=== PATIENT | male | born 1970 | race African-American/Black ===

== ENCOUNTER 2017-02-11 12:17 | Observation (INO) ==
[2017-02-11] MEDS: SODIUM CHLORIDE 0.9% 1,000 ML IV SCH ×2 (12:15→22:07)
[~2017-02-11 12:17] MED LIST: LIDOCAINE 1% 20 ML VIAL ONE; MIDAZOLAM 2 MG/2 ML VIAL ONE; ONDANSETRON 4 MG/2 ML VIAL ONE; fentaNYL 100 MCG/2 ML VIAL ONE
[2017-02-11] MEDS ORDERED: ONDANSETRON 4 MG/2 ML VIAL IV PRN (12:27)
[2017-02-11] MEDS ORDERED: ZALEPLON 5 MG CAPSULE PO PRN (12:27)
[2017-02-11] MEDS ORDERED: NITROGLYCERIN SL 0.4 MG TABLET SL PRN (12:27)
[2017-02-11] MEDS ORDERED: ACETAMINOPHEN 325 MG TABLET PO PRN (12:27)
--- NOTE | 2017-02-11 12:34 | Operative Note ---
Date of procedure: 02/11/17 Procedure Preformed: Left heart catheterization with LV gram. Surgeon / Physician: Sukhwinder Agudelo Propellant Charge Zone Assembler: Edel Maldonado Post-op diagnosis: same Findings: Patient with small vessel coronary artery disease. No obstructive disease to account for his symptoms or EKG findings. Specimens: none sent Estimated blood loss: minimal Condition: stable Anesthesia: local, conscious sedation Disposition: floor
--- NOTE | 2017-02-11 12:37 | Cardiology History & Physical ---
Assessment and Plan - Time spent with patient Time spent with patient: Greater than 30 minutes (1) Chest pain Status: Acute Assessment and plan: Patient had emergent cardiac catheterization without finding of occluded coronary disease or findings a could explain his findings on ECG. He did have some small vessels with disease. We will evaluate him from other causes of his chest pain especially with his nausea vomiting. This may indicate a GI source. Current Visit: Yes (2) Nausea and vomiting Status: Acute Assessment and plan: This is an acute onset and preceded he is chest pain by 30 minutes to an hour. This may be the source of his chest pain. He may have a GI issue more than so that a cardiac issue at this time. Current Visit: Yes (3) Coronary artery disease Status: Chronic Assessment and plan: He does have some small vessel coronary disease. He gives a history of having some coronary disease previously and cardiac evaluation. We will try to get those records. Current Visit: Yes (4) Hypertension Status: Chronic Assessment and plan: This is initially significantly elevated when he was picked up by EMS. Present is stable. Current Visit: Yes (5) Diabetes mellitus Status: Chronic Assessment and plan: The details of this is unknown at this time. We will have to investigate this further. Current Visit: Yes History of Present Illness Chief complaint: Chest pain nausea vomiting. History of present illness: Mr. Burt is a 46 year old male who is brought in by EMS with a diagnosis of STEMI. Patient was seen in the catheterization laboratory. Should be noted the patient's history is somewhat limited at this time secondary to his situation and post catheterization is somewhat sedate. [facility] and developed nausea vomiting about 30 minutes to an hour after which she developed chest pain. EMS was summoned. ECG was done with ECG changes diffusely. He has some ST elevation anteriorly with ST depression inferiorly. T-wave abnormalities were present. The patient was labeled a STEMI by EMS and brought directly to the cardiac catheterization laboratory. Patient states she has had prior heart disease and was told that he is vessels were too small for stents. 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 He gives a history of hypertension diabetes. He says she has not smoked in over a year. On his arrival to the catheterization auditory he was having nausea vomiting. He denied chest pain. Allergies Allergy/AdvReac Type Severity Reaction Status Date / Time No Known Allergies Allergy Unverified 02/11/17 12:26 ROS unobtainable: other Review of systems: Constitutional: Denies anorexia, chills, fatigue, fever, frequent falls, night sweats, weight gain, weight loss Eyes: Denies visual changes or loss of vision Ears: Denies decreased hearing, vertigo Nose, mouth and throat: Denies dysphagia, epistaxis, headaches, neck pain, tongue swelling, Neck: Denies thyromegaly or masses. No stiffness. Cardiovascular: as per HPI Respiratory: Denies cough, dyspnea, hemoptysis, dyspnea on exertion, wheezing, snoring Gastrointestinal: Complains of nausea vomiting acutely today. Denies constipation, dyspepsia, dysphagia, hematemesis, hematochezia, melena Genitourinary: Denies dysuria, hematuria, nocturia Musculoskeletal: Denies arthralgias, joint swelling, muscle weakness, myalgias Neurological: denies abnormal gait, abnormal speech, confusion, convulsions, frequent falls, headaches, memory loss, syncope Psychiatric: Denies anxiety, confusion, depression Endocrine: States she has diabetes mellitus. Hematologic/Lymphatic: Denies easy bleeding, easy bruising Dermatologic: Denies Rash Medical,Surgical,& Family Hx - Medical History Cardio: History of: CAD Psychological: No history of: Anxiety Disorders, Psychiatric/Substance Abuse Tx Neurology: No history of: Cerebral Hemorrhage, Cerebrovascular Accident, Seizures HEENT: No history of: Ear Problem, Eye Problem Endocrine: History of: Diabetes Mellitus (NIDDM) Rheumatology: No history of;: Rheumatological Problems Respiratory: No history of: Respiratory Problems Gastrointestinal: History of: GI Problems (Admitted with nausea vomiting.) No history of: Gastrointestinal Bleed, Hematochezia, Liver Problems Hematology: No history of: Anemia, Blood Disorders - Surgical History Additional Surgical History: Elbow surgery - Family History Family History: noncontributory - Social History Smoking Status: Former smoker Have you smoked in the last 12 months: No Cardiology Physical Exam - Constitutional Vitals: Intake and Output 02/10/17 02/11/17 02/11/17 23:59 07:59 15:59 Other: Weight 80.739 kg Patient Weight 02/11/17 23:59 Weight 80.739 kg Exam: General appearance: normal weight, nausea vomiting on admission. Head exam: normal inspection, atraumatic Eye exam: Pupils are equal and reactive. EOMI. There is no trauma. Ear exam: Anatomically normal. Normal auditory acuity to conversation. Oral exam: No significant oral lesions. Neck exam: normal inspection no JVD. No carotid bruit. Trachea is in midline. Respiratory exam: clear to auscultation bilaterally and anteriorly with good air movement. No rales, rhonchi or wheezes. Cardiovascular exam: regular rate and rhythm, no murmur or gallop or rub. No precordial lift. No bruits over the major arteries. Chest wall/torso: Anatomically normal. No tenderness, deformity Peripheral Pulses: 2+ throughout. GI/Abdominal exam: normal bowel sounds, soft and nontender, no abdominal bruits or pulsatile masses. Musculoskeletal/Extremities exam: normal inspection without edema or cyanosis. No deformities or trauma. Neurological exam: alert, oriented X3. There is no gross neurologic deficits. Psychiatric exam: normal affect, normal mood. Cognitive function is grossly intact. Skin exam: normal color, warm. No rashes or other skin lesions. Result/EKG - Impressions Impressions: ECG was sinus rhythm with ST-T abnormalities. There was some ST elevation anteriorly and depression inferiorly. With diffuse T-wave abnormalities. Quality Measures - VTE Contraindication to Pharmacological VTE Prophylaxis: High Risk of Bleeding
[2017-02-11] MEDS ORDERED: DEXTROSE 50% 25 GM/50 ML VIAL IV PRN (12:48)
[2017-02-11] MEDS ORDERED: GLUCAGON 1 MG VIAL IM PRN (12:48)
--- NOTE | 2017-02-11 13:03 | Cardiac Catheterization ---
Date of Procedure:: 02/11/17 Pre-op Diagnosis: Patient admitted directly to cardiac catheterization laboratory per STEMI diagnosis by EMS. ECG is abnormal. Post-op diagnosis: same Procedure: LEFT HEART CATHERIZATION History: 46-year-old man who is brought directly to cardiac catheterization laboratory per [place]. Patient gives a history of having coronary disease but apparently too small for stents. The patient had nausea and vomiting 30+ minutes prior to chest pain. [place] by EMS had EKG abnormalities which he did and was brought to the catheterization laboratory the diagnosis of STEMI. Pre-Op diagnosis: STEMI per EMS with abnormal ECG and history of coronary artery disease. Postoperative diagnosis: Patient with small vessel coronary disease but no disease to account for his ECG abnormalities. Procedures: 1. Left heart catheterization. 2. Left ventricular angiogram. 3. Selective left and right coronary angiograms. 4. Right common femoral artery angiogram with Angio-Seal hemostasis. Equipment: 6 Canadian arterial sheath, 6 Canadian diagnostic pigtail catheter, JL4 and JR4 diagnostic catheters. A 6 Canadian Angio-Seal hemostatic device. Medications: Preoperative Benadryl and Valium given by mouth. Lidocaine 1% local anesthesia 10 mls administered by myself. Intraprocedure patient received Versed 1 mgs IVP, fentanyl 50 mcg IVP, Zofran 4 mgs IVP. Complications: None immediate. Contrast: Visipaque 77 milliliters. Description of procedure: After informed consent the patient was given preoperative medications and brought to the catheterization laboratory where their right groin was prepped and draped in usual fashion. IV sedation was then obtained after which local anesthesia was administered at the right groin over the right common femoral artery. Using modified Seldinger technique the right common femoral artery was cannulated with 6 Canadian arterial sheath placed. The pigtail catheter was then advanced through the sheath in a retrograde approach through the aorta to the aortic valve. The catheter was advanced through the aortic valve where left ventricular pressures were measured. The catheter was then pulled back into the aortic root and pressures measured. The catheter was then advanced across the aortic valve into the left ventricle where left ventricular angiogram was obtained in the right anterior oblique view. The pigtail catheter was then removed. The JL4 diagnostic coronary catheter was then advanced through the sheath in a retrograde approach and used to cannulate the left coronary artery of which angiograms were obtained in multiple projections. This catheter was then removed. The JR 4 diagnostic coronary catheter was then advanced retrograde through the aorta and used to cannulate the right coronary artery of which angiograms were obtained in multiple projections. This right coronary catheter was used to obtain selective left internal mammary artery angiogram. Angiograms were then reviewed. The right coronary catheter was pulled back into the sheath where a right common femoral artery angiogram was obtained with Angio-Seal hemostasis then obtained of this vessel. There were no immediate complications. Hemodynamic data: LV 126/6, EDP 33; AO root 118/71, mean 92. Left ventricular angiogram: Left ventricle is normal size systolic function with ejection fraction of 70+% with LV cavity obliteration. No segmental wall motion abnormalities. There is no significant mitral valve regurgitation demonstrated. The aortic valve the tricuspid structure. The thoracic aorta from the right anterior oblique view is unremarkable. Runoff reveals that the sheath is inserted in the right common femoral artery. Left main coronary artery angiogram: Left main coronary is a large caliber vessel that bifurcates the LAD and circumflex arteries. It is without stenosis or disease. Left anterior descending artery angiogram: LAD proximal is a medium caliber vessel extends around the apex posteriorly where it tapers to a much smaller vessel. The first diagonal branch is a very small vessel but long. He is diffusely diseased but probably less than 60% stenosis. Second diagonal is a very small short vessel. The LAD proper has diffuse luminal irregularities less than 30% stenosis. Circumflex artery angiogram: Circumflex artery is a medium caliber vessel. It gives rise to a small caliber but long first obtuse marginal branch. Second and third obtuse marginal branches are small short vessels. The fourth and terminal obtuse marginal branch is medium caliber. There is diffuse luminal irregularities in the circumflex artery proper and branches but less than 30% stenosis. Right coronary artery angiogram: RCA is a medium caliber dominant vessel. The PDA is a medium caliber vessel very proximally but quickly becomes a small bifurcating vessel. There was 70-80% distal stenosis but this is a small vessel and probably too small for intervention. There is some minimal luminal irregularities. Right common femoral artery angiogram: This vessel was seen briefly with LV runoff in the sheath is noted to be inserted in the right common femoral artery. Impression: 1. Left ventricle is normal size and systolic function with hyperdynamic left ventricle with LV cavity obliteration ejection fraction greater than 70%. 2. LVEDP 30 mmHg 3. No significant mitral regurgitation demonstrated. 4. Aortic valve appears to be a tricuspid structure. Minimal gradient. 5. Right coronary artery is dominant with luminal irregularities, PDA with 7080% distal stenosis and too small for intervention. 6. Left main coronary is patent without stenosis or disease. 7. Circumflex artery patent without stenosis or disease of less than 30% stenosis. 8. Left anterior descending coronary artery with diffuse luminal irregularities less than 30% stenosis. Diagonal branches are very small. 9. Right common femoral artery is patent with successful Angio-Seal hemostasis. Discussion: Patient be monitored post catheterization. Will adjust his medications for his hypertension. Will follow up on his cardiac enzymes. He will need risk factor modifications. Implants: none Anesthesia: local, moderate conscious sedation Surgeon / Physician: Sukhwinder Agudelo [employer] [place]: other (Edel MARION) Estimated blood loss: minimal Specimens: none sent Condition: stable Disposition: floor - Medications / Follow-up
--- NOTE | 2017-02-11 14:37 | EKG Report ---
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
[2017-02-11 15:27] LABS: Basophils % 0.4 % (0.0-0.8); Eosinophils % 0.1 % (0.00-10.9); Hematocrit 43.6 VOL% (42.0-52.0); Hemoglobin 14.3 GM/DL (14.0-18.0); Immature Granulocytes % 0.3 %; Immature Granulocytes Absolute 0.03 #; Lymphocytes % 10.6 % (21.2-54.2); Mean Corpuscular HGB Conc 32.8 GM/DL (32-36); Mean Corpuscular Hemoglobin 26 PG (27-34); Mean Corpuscular Volume 79.6 FL (87-102); Mean Platelet Volume 10.5 FL (9.6-12.0); Monocytes # 0.6 10*3/uL (0.11-0.8); Monocytes % 6.5 % (1.7-12.7); Neutrophils % 82.1 % (38.7-73.9); Platelet Count 306 T/CUMM (130-400); Red Blood Count 5.48 MC/CUMM (3.8-5.5); Red Cell Distribution Width 13.6 % (9.3-17.3); White Blood Count 9.8 T/CUMM (4-12)
[2017-02-11 15:41] LABS: Troponin I Only < 0.015 NG/ML (0.00-0.045)
[2017-02-11 15:56] LABS: Troponin I Only < 0.015 NG/ML (0.00-0.045)
[2017-02-11] MEDS: INSULIN REGULAR 100 UNIT/ML SUBCUT SCH ×2 (16:15→22:06)
[2017-02-11 16:26] LABS: Albumin 4.1 G/DL (3.4-5.0); Bilirubin,Total 0.7 MG/DL (0.2-1.0); Calcium 8.8 MG/DL (8.5-10.1); Osmolality,Calculated 277.4 MOS/KG (273-304); Potassium 3.4 MMOL/L (3.5-5.1); Total Protein 8.1 G/DL (6.4-8.3)
--- NOTE | 2017-02-11 16:55 | Event Note ---
Patient is doing well post catheterization. He has had no further nausea or vomiting. His cardiac enzymes thus far unremarkable. We were able to obtain some outside records and on heart catheterization in 2013. The description of that catheterization and his coronary anatomy is very similar to what he has at present. If all goes well he may be a to be discharged tomorrow. I suspect his symptomology secondary to acute GI issues i.e. probably some gastritis. He is not having any symptoms at this time.
[2017-02-11 19:44] LABS: Troponin I Only 0.016 NG/ML (0.00-0.045)
[2017-02-12 05:08] LABS: Cholesterol 208 MG/DL (50-200); HDL Cholesterol 55 MG/DL (40-60); Risk Ratio 3.78; Triglycerides 65 MG/DL (2-150)
[2017-02-12 05:10] LABS: Troponin I Only 0.062 NG/ML (0.00-0.045)
--- NOTE | 2017-02-12 06:58 | EKG Report ---
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
[2017-02-12] MEDS: SODIUM CHLORIDE 0.9% 1,000 ML IV SCH ×2 (07:06→14:02)
[2017-02-12] MEDS: LOSARTAN/HCTZ 50-12.5 MG TABLET PO SCH ×2 (07:53→08:20)
[2017-02-12] MEDS: INSULIN REGULAR 100 UNIT/ML SUBCUT SCH ×4 (08:07→20:48)
[2017-02-12] MEDS: ASPIRIN EC 81 MG TABLET PO SCH (08:20)
[2017-02-12] MEDS: PANTOPRAZOLE 40 MG TABLET PO SCH (08:20)
--- NOTE | 2017-02-12 08:36 | Cardiology Progress Note ---
<Ceci Chauhan E - Last Filed: 02/12/17 08:33> Assessment and Plan - Time spent with patient Time spent with patient: Greater than 30 minutes (1) Dyslipidemia Status: Chronic Assessment and plan: SEE PLAN OF CARE LISTED BELOW Current Visit: Yes (2) Chest pain Status: Resolved Assessment and plan: SEE PLAN OF CARE LISTED BELOW Current Visit: Yes (3) Nausea and vomiting Status: Resolved Assessment and plan: SEE PLAN OF CARE LISTED BELOW Current Visit: Yes (4) Coronary artery disease Status: Chronic Assessment and plan: SEE PLAN OF CARE LISTED BELOW Current Visit: Yes (5) Hypertension Status: Chronic Assessment and plan: SEE PLAN OF CARE LISTED BELOW Current Visit: Yes (6) Diabetes mellitus Status: Chronic Assessment and plan: SEE PLAN OF CARE LISTED BELOW Current Visit: Yes Cardiology - PN: Subj Interval history: Patient presented to the emergency department of [facility] February 11, 2017 with concerns for possible STEMI. He underwent emergent cardiac catheterization, performed by Dr. Agudelo, with the results listed below Impression: 1. Left ventricle is normal size and systolic function with hyperdynamic left ventricle with LV cavity obliteration ejection fraction greater than 70%. 2. LVEDP 30 mmHg 3. No significant mitral regurgitation demonstrated. 4. Aortic valve appears to be a tricuspid structure. Minimal gradient. 5. Right coronary artery is dominant with luminal irregularities, PDA with 7080% distal stenosis and too small for intervention. 6. Left main coronary is patent without stenosis or disease. 7. Circumflex artery patent without stenosis or disease of less than 30% stenosis. 8. Left anterior descending coronary artery with diffuse luminal irregularities less than 30% stenosis. Diagonal branches are very small. 9. Right common femoral artery is patent with successful Angio-Seal hemostasis. Discussion: Patient be monitored post catheterization. Will adjust his medications for his hypertension. Will follow up on his cardiac enzymes. He will need risk factor modifications. Overnight he has had no chest pain, heaviness or tightness. He is extremely hypertensive. This morning, he has been given his losartan/HCT and will continue to monitor his blood pressure closely. He may require a second agent. He would like to be discharged this afternoon. He is from [place] and previously saw a editor at large at [facility] though it had been some years. His primary care provider is Dr. Gill at [place], [place]. Will recheck his blood pressure in 1-1/2 hours. May require a second agent to lower his blood pressure. Will do our best to get him out of here this afternoon as requested. His and son are on the way from [place] this morning. LDL 148. Atorvastatin 40 mg orally each evening being initiated today. ASSESSMENT/PLAN: 1. CHEST PAIN - no ACS. May been related to his uncontrolled hypertension. 2. HYPERTENSION - giving morning meds. Will most likely require a second agent. Will add betablocker this morning 3. DYSLIPIDEMIA - LDL 148. Adding Atorvastatin 40mg each evening 4. DIABETES - continue current plan of care Exam (Progress Note) - Constitutional Vitals: Period Temp Pulse Resp BP Sys/Armas Pulse Ox Last 24 Hr 96.4 F-98.4 F 60-86 16-20 96-195/60-113 95-98 Exam: General: [Appears well with no apparent distress.] [Pleasant and cooperative. ] [Appears comfortable.] HEENT: [PERRL, normocephalic, atraumatic. Mucous membranes moist. No jaundice noted. Conjunctiva moist and clear, sclerae anicteric] Neck: No JVD/HJR, no thyromegaly or lymphadenopathy noted. No carotid bruit appreciated Cardiac: [Regular rate and rhythm.] [No murmur rub or gallop.] Lungs: [Clear to auscultation without accessory muscle use to assist the respiratory pattern.] Abdomen: Soft, bowel sounds normoactive. Nontender and nondistended. No abdominal bruit or thrill noted. No masses noted. Musculoskeletal: No fluid collection. Decreased range of motion is noted. Extremities: Right groin soft, free of hematoma or bruit. No clubbing, cyanosis noted. [ No edema noted.] Upper extremity pulses 2+. Lower extremity pulses 2+. Capillary refill less than 3 seconds. Skin: No unusual lesions or rashes. No skin breakdown appreciated. Neuro: Awake, alert and oriented 3. Moves all extremities well without hemiparesis or paralysis. No essential tremor is appreciated. Result/EKG - Labs CBC & BMP: 02/11/17 14:55 02/11/17 14:55 Lab Results: I have reviewed the past 24 hour labs Labs: Laboratory Results - last 24 hr 02/11/17 02/11/17 02/11/17 14:55 14:55 14:55 WBC 9.8 RBC 5.48 Hgb 14.3 Hct 43.6 MCV 79.6 L MCH 26 L MCHC 32.8 RDW 13.6 Plt Count 306 MPV 10.5 Neut % (Auto) 82.1 H Lymph % (Auto) 10.6 L Treasure % (Auto) 6.5 Eos % (Auto) 0.1 Baso % (Auto) 0.4 Neut # (Auto) 8.0 H Lymph # (Auto) 1.0 L Treasure # (Auto) 0.6 Eos # (Auto) 0.0 Baso # (Auto) 0.0 Immature Gran % 0.3 Nucleated RBC % 0.0 Immature Gran # 0.03 Nucleated RBCs # 0.00 Sodium Potassium Chloride Carbon Dioxide Anion Gap BUN Creatinine GFR Calculation BUN/Creatinine Ratio Glucose POC Glucose Calculated Osmolality Calcium Total Bilirubin AST ALT Alkaline Phosphatase Total Creatine Kinase 138 144 CK-MB (CK-2) 1.4 1.2 Troponin I < 0.015 < 0.015 Total Protein Albumin Globulin Albumin/Globulin Ratio Triglycerides Cholesterol LDL Cholesterol VLDL Cholesterol HDL Cholesterol Heart Disease Risk Ratio 02/11/17 02/11/17 02/11/17 14:55 15:12 19:00 WBC RBC Hgb Hct MCV MCH MCHC RDW Plt Count MPV Neut % (Auto) Lymph % (Auto) Treasure % (Auto) Eos % (Auto) Baso % (Auto) Neut # (Auto) Lymph # (Auto) Treasure # (Auto) Eos # (Auto) Baso # (Auto) Immature Gran % Nucleated RBC % Immature Gran # Nucleated RBCs # Sodium 140 Potassium 3.4 L Chloride 103 Carbon Dioxide 25 Anion Gap 15.4 H BUN 11 Creatinine 1.20 GFR Calculation 90 BUN/Creatinine Ratio 9.00 Glucose 105 POC Glucose 103 Calculated Osmolality 277.4 Calcium 8.8 Total Bilirubin 0.70 AST 16 ALT 23 Alkaline Phosphatase 71 Total Creatine Kinase 144 CK-MB (CK-2) 2.3 Troponin I 0.016 Total Protein 8.1 Albumin 4.1 Globulin 4.0 H Albumin/Globulin Ratio 1.0 L Triglycerides Cholesterol LDL Cholesterol VLDL Cholesterol HDL Cholesterol Heart Disease Risk Ratio 02/11/17 02/12/17 02/12/17 20:56 03:20 07:18 WBC RBC Hgb Hct MCV MCH MCHC RDW Plt Count MPV Neut % (Auto) Lymph % (Auto) Treasure % (Auto) Eos % (Auto) Baso % (Auto) Neut # (Auto) Lymph # (Auto) Treasure # (Auto) Eos # (Auto) Baso # (Auto) Immature Gran % Nucleated RBC % Immature Gran # Nucleated RBCs # Sodium Potassium Chloride Carbon Dioxide Anion Gap BUN Creatinine GFR Calculation BUN/Creatinine Ratio Glucose POC Glucose 111 H 95 Calculated Osmolality Calcium Total Bilirubin AST ALT Alkaline Phosphatase Total Creatine Kinase 161 CK-MB (CK-2) 3.3 Troponin I 0.062 H D Total Protein Albumin Globulin Albumin/Globulin Ratio Triglycerides 65 Cholesterol 208 H LDL Cholesterol 148.0 VLDL Cholesterol 13.0 HDL Cholesterol 55 Heart Disease Risk Ratio 3.78 - Diagnostic Findings Procedure: Chest x-ray: report reviewed by me - EKG EKG results: interpreted by me EKG shows: sinus rhythm Quality Measures - VTE Contraindication to Pharmacological VTE Prophylaxis: High Risk of Bleeding Specialty Discharge - Follow Up or Referrals <Sukhwinder Agudelo - Last Filed: 02/12/17 09:19> Assessment and Plan (1) Chest pain Status: Resolved Current Visit: Yes (2) Nausea and vomiting Status: Resolved Current Visit: Yes (3) Coronary artery disease Status: Chronic Current Visit: Yes (4) Hypertension Status: Chronic Current Visit: Yes (5) Diabetes mellitus Status: Chronic Current Visit: Yes Cardiology - PN: Subj Interval history: Patient personally interviewed and examined by me this morning. I discussed this case with Ceci Chauhan NP. He has no real specific complaints today. As noted in my note yesterday he has coronary anatomy on this catheterization is very similar to what he had had previously. His right groin this morning is stable. His findings are more consistent with having acute episode of nausea vomiting probably from food that did not agree with him or could have been contaminated. He has done well since though admission. His cardiac enzymes are unremarkable. His blood pressures are elevated and his home blood pressure medication been restarted. His lipids are elevated with coronary disease certainly he needs to be on statin drug. Atorvastatin has been started. I discussed and reviewed with the patient the findings and recommendations. If he does well throughout the rest the day we will discharge him later today probably this afternoon. Exam (Progress Note) - Constitutional Vitals: Period Temp Pulse Resp BP Sys/Armas Pulse Ox Last 24 Hr 96.4 F-98.4 F 60-86 16-20 96-195/60-113 95-98 Result/EKG - Labs CBC & BMP: 02/12/17 08:26 02/11/17 14:55 Labs: Laboratory Results - last 24 hr 02/11/17 02/11/17 02/11/17 14:55 14:55 14:55 WBC 9.8 RBC 5.48 Hgb 14.3 Hct 43.6 MCV 79.6 L MCH 26 L MCHC 32.8 RDW 13.6 Plt Count 306 MPV 10.5 Neut % (Auto) 82.1 H Lymph % (Auto) 10.6 L Treasure % (Auto) 6.5 Eos % (Auto) 0.1 Baso % (Auto) 0.4 Neut # (Auto) 8.0 H Lymph # (Auto) 1.0 L Treasure # (Auto) 0.6 Eos # (Auto) 0.0 Baso # (Auto) 0.0 Immature Gran % 0.3 Nucleated RBC % 0.0 Immature Gran # 0.03 Nucleated RBCs # 0.00 Sodium Potassium Chloride Carbon Dioxide Anion Gap BUN Creatinine GFR Calculation BUN/Creatinine Ratio Glucose POC Glucose Calculated Osmolality Calcium Total Bilirubin AST ALT Alkaline Phosphatase Total Creatine Kinase 138 144 CK-MB (CK-2) 1.4 1.2 Troponin I < 0.015 < 0.015 Total Protein Albumin Globulin Albumin/Globulin Ratio Triglycerides Cholesterol LDL Cholesterol VLDL Cholesterol HDL Cholesterol Heart Disease Risk Ratio 02/11/17 02/11/17 02/11/17 14:55 15:12 19:00 WBC RBC Hgb Hct MCV MCH MCHC RDW Plt Count MPV Neut % (Auto) Lymph % (Auto) Treasure % (Auto) Eos % (Auto) Baso % (Auto) Neut # (Auto) Lymph # (Auto) Treasure # (Auto) Eos # (Auto) Baso # (Auto) Immature Gran % Nucleated RBC % Immature Gran # Nucleated RBCs # Sodium 140 Potassium 3.4 L Chloride 103 Carbon Dioxide 25 Anion Gap 15.4 H BUN 11 Creatinine 1.20 GFR Calculation 90 BUN/Creatinine Ratio 9.00 Glucose 105 POC Glucose 103 Calculated Osmolality 277.4 Calcium 8.8 Total Bilirubin 0.70 AST 16 ALT 23 Alkaline Phosphatase 71 Total Creatine Kinase 144 CK-MB (CK-2) 2.3 Troponin I 0.016 Total Protein 8.1 Albumin 4.1 Globulin 4.0 H Albumin/Globulin Ratio 1.0 L Triglycerides Cholesterol LDL Cholesterol VLDL Cholesterol HDL Cholesterol Heart Disease Risk Ratio 02/11/17 02/12/17 02/12/17 20:56 03:20 07:18 WBC RBC Hgb Hct MCV MCH MCHC RDW Plt Count MPV Neut % (Auto) Lymph % (Auto) Treasure % (Auto) Eos % (Auto) Baso % (Auto) Neut # (Auto) Lymph # (Auto) Treasure # (Auto) Eos # (Auto) Baso # (Auto) Immature Gran % Nucleated RBC % Immature Gran # Nucleated RBCs # Sodium Potassium Chloride Carbon Dioxide Anion Gap BUN Creatinine GFR Calculation BUN/Creatinine Ratio Glucose POC Glucose 111 H 95 Calculated Osmolality Calcium Total Bilirubin AST ALT Alkaline Phosphatase Total Creatine Kinase 161 CK-MB (CK-2) 3.3 Troponin I 0.062 H D Total Protein Albumin Globulin Albumin/Globulin Ratio Triglycerides 65 Cholesterol 208 H LDL Cholesterol 148.0 VLDL Cholesterol 13.0 HDL Cholesterol 55 Heart Disease Risk Ratio 3.78 02/12/17 08:26 WBC 9.2 RBC 5.57 H Hgb 14.6 Hct 43.7 MCV 78.5 L MCH 26 L MCHC 33.4 RDW 13.8 Plt Count 312 MPV 9.9 Neut % (Auto) 69.9 Lymph % (Auto) 21.5 Treasure % (Auto) 7.7 Eos % (Auto) 0.4 Baso % (Auto) 0.3 Neut # (Auto) 6.4 Lymph # (Auto) 2.0 Treasure # (Auto) 0.7 Eos # (Auto) 0.0 Baso # (Auto) 0.0 Immature Gran % 0.2 Nucleated RBC % 0.0 Immature Gran # 0.02 Nucleated RBCs # 0.00 Sodium Potassium Chloride Carbon Dioxide Anion Gap BUN Creatinine GFR Calculation BUN/Creatinine Ratio Glucose POC Glucose Calculated Osmolality Calcium Total Bilirubin AST ALT Alkaline Phosphatase Total Creatine Kinase CK-MB (CK-2) Troponin I Total Protein Albumin Globulin Albumin/Globulin Ratio Triglycerides Cholesterol LDL Cholesterol VLDL Cholesterol HDL Cholesterol Heart Disease Risk Ratio
[2017-02-12 08:39] LABS: Basophils % 0.3 % (0.0-0.8); Eosinophils % 0.4 % (0.00-10.9); Hematocrit 43.7 VOL% (42.0-52.0); Hemoglobin 14.6 GM/DL (14.0-18.0); Immature Granulocytes % 0.2 %; Immature Granulocytes Absolute 0.02 #; Lymphocytes % 21.5 % (21.2-54.2); Mean Corpuscular HGB Conc 33.4 GM/DL (32-36); Mean Corpuscular Hemoglobin 26 PG (27-34); Mean Corpuscular Volume 78.5 FL (87-102); Mean Platelet Volume 9.9 FL (9.6-12.0); Monocytes # 0.7 10*3/uL (0.11-0.8); Monocytes % 7.7 % (1.7-12.7); Neutrophils # 6.4 10*3/uL (1.4-7.4); Neutrophils % 69.9 % (38.7-73.9); Platelet Count 312 T/CUMM (130-400); Red Blood Count 5.57 MC/CUMM (3.8-5.5); Red Cell Distribution Width 13.8 % (9.3-17.3); White Blood Count 9.2 T/CUMM (4-12)
[2017-02-12] MEDS ORDERED: CARVEDILOL 6.25 MG TABLET PO SCH (09:00)
[2017-02-12 09:24] LABS: Calcium 8.8 MG/DL (8.5-10.1); Magnesium 2.3 MG/DL (1.8-2.4); Potassium 3.6 MMOL/L (3.5-5.1)
--- NOTE | 2017-02-12 09:37 | Discharge Summary ---
Hospital Course - Hospital Course Hospital Course: Patient presented to the emergency department of [facility] February 11, 2017 with concerns for possible STEMI. He underwent emergent cardiac catheterization, performed by Dr. Agudelo, with the results listed below Impression: 1. Left ventricle is normal size and systolic function with hyperdynamic left ventricle with LV cavity obliteration ejection fraction greater than 70%. 2. LVEDP 30 mmHg 3. No significant mitral regurgitation demonstrated. 4. Aortic valve appears to be a tricuspid structure. Minimal gradient. 5. Right coronary artery is dominant with luminal irregularities, PDA with 7080% distal stenosis and too small for intervention. 6. Left main coronary is patent without stenosis or disease. 7. Circumflex artery patent without stenosis or disease of less than 30% stenosis. 8. Left anterior descending coronary artery with diffuse luminal irregularities less than 30% stenosis. Diagonal branches are very small. 9. Right common femoral artery is patent with successful Angio-Seal hemostasis. Discussion: Patient be monitored post catheterization. Will adjust his medications for his hypertension. This was NOT ACS. Likely related to uncontrolled hypertension. Overnight he has had no chest pain, heaviness or tightness. He was extremely hypertensive on arrival to the emergency department most likely creating his chest discomfort and nausea. Patient's blood pressure was taken in both arms with the left arm noted to be 40-50 mmHg is higher than the right arm. He underwent CTA of the aorta to rule out dissection or other contributing factors to the differential in blood pressures. No significant abnormality was noted. Patient's blood pressure came under but better control with changing and adjusting his medications. This morning, he would like to be discharged home. I spent greater than 30 minutes this morning discussing the importance of follow -up with his primary care provider and he and his are arranging for that to happen nail. On the way home, patient will purchase a blood pressure machine and use this routinely. LDL 148. Atorvastatin 40 mg orally each evening was initiated. I also encouraged him to follow-up with his interactive media marketing strategist at [facility] in [place], [place]. He will do so. His primary care provider is Dr. Gill at [place], [place]. He will follow-up with Dr. Gill within 1 week. Patient was given hand written prescriptions at discharge to include the following: Aspirin 81 mg orally daily (new) Coreg 12.5 mg orally twice daily (new) Losartan/HCT 100 mg/25 mg 1 p.o. daily Atorvastatin 40 mgs orally each evening (new) Nitroglycerin 0.4 mg sublingual as needed chest pain (new) - Time spent with patient Time with patient DS: Greater than 30 minutes Diagnosis - Discharge Diagnosis (1) Dyslipidemia Status: Chronic (2) Chest pain Status: Resolved (3) Nausea and vomiting Status: Resolved (4) Coronary artery disease Status: Chronic (5) Hypertension Status: Chronic (6) Diabetes mellitus Status: Chronic Specialty Discharge - Follow Up or Referrals Discharge Plan - Discharge Data Disposition: Disch To Home/Self Care Condition at Discharge: Stable Discharge Diet: heart healthy Activity: other (Post cath expectations) Hygiene: other (Post cath expectations) Weight Bearing at Discharge: other (Post cath expectations) Driving: other (Post cath expectations) Contact your physician if you experience:: fever over 101, Difficulty voiding, Redness or swelling, Nausea/Vomiting, Shortness of breath, Bleeding, pain uncontrolled by pain medications - Discharge Medications New Atorvastatin [Lipitor] 40 mg PO BEDTIME #30 tablet Nitroglycerin Sl Tab [Nitrostat] 0.4 mg SL Q5M PRN #1 bottle PRN Reason: Chest Pain Carvedilol [Coreg] 12.5 mg PO BID #60 tablet Aspirin EC Tab 81 mg PO DAILY #30 tablet Continue Losartan/Hydrochlorothiazide [Losartan-Hctz 50-12.5 mg Tab] 2 tablet PO DAILY - Follow Up or Referral - Forms/Instructions Instructions: Coronary Artery Disease (GEN), Left Heart Catheterization (DC), Heart Healthy Diet (GEN) Additional Discharge Instructions: Please have patient follow up with [facility] interactive media marketing strategist in [place], [place] 1- 2 weeks. Follow-up appoint with Dr. Gill of [place], [place] 1-2 weeks. Exam - Constitutional Vitals: Period Temp Pulse Resp BP Sys/Armas Pulse Ox Last 24 Hr 96.4 F-98.4 F 60-86 16-20 96-195/60-113 95-98 Exam: General: [Appears well with no apparent distress.] [Pleasant and cooperative. ] [Appears comfortable.] HEENT: [PERRL, normocephalic, atraumatic. Mucous membranes moist. No jaundice noted. Conjunctiva moist and clear, sclerae anicteric] Neck: No JVD/HJR, no thyromegaly or lymphadenopathy noted. No carotid bruit appreciated Cardiac: [Regular rate and rhythm.] [No murmur rub or gallop.] Lungs: [Clear to auscultation without accessory muscle use to assist the respiratory pattern.] Abdomen: Soft, bowel sounds normoactive. Nontender and nondistended. No abdominal bruit or thrill noted. No masses noted. Musculoskeletal: No fluid collection. Decreased range of motion is noted. Extremities: Right groin soft, free of hematoma or bruit. No clubbing, cyanosis noted. [ No edema noted.] Upper extremity pulses 2+. Lower extremity pulses 2+. Capillary refill less than 3 seconds. Skin: No unusual lesions or rashes. No skin breakdown appreciated. Neuro: Awake, alert and oriented 3. Moves all extremities well without hemiparesis or paralysis. No essential tremor is appreciated. Discharge Results Labs on day of discharge: Labs from last 24 hours 02/12/17 02/12/17 02/12/17 08:26 08:26 07:18 WBC 9.2 RBC 5.57 H Hgb 14.6 Hct 43.7 MCV 78.5 L MCH 26 L MCHC 33.4 RDW 13.8 Plt Count 312 MPV 9.9 Neut % (Auto) 69.9 Lymph % (Auto) 21.5 Riley % (Auto) 7.7 Eos % (Auto) 0.4 Baso % (Auto) 0.3 Neut # (Auto) 6.4 Lymph # (Auto) 2.0 Riley # (Auto) 0.7 Eos # (Auto) 0.0 Baso # (Auto) 0.0 Immature Gran % 0.2 Nucleated RBC % 0.0 Immature Gran # 0.02 Nucleated RBCs # 0.00 Sodium 143 Potassium 3.6 Chloride 107 Carbon Dioxide 29 Anion Gap 10.6 BUN 11 Creatinine 1.20 GFR Calculation 90 BUN/Creatinine Ratio 9.00 Glucose 106 POC Glucose 95 Calculated Osmolality 283.0 Calcium 8.8 Magnesium 2.3 Total Bilirubin AST ALT Alkaline Phosphatase Total Creatine Kinase CK-MB (CK-2) Troponin I Total Protein Albumin Globulin Albumin/Globulin Ratio Triglycerides Cholesterol LDL Cholesterol VLDL Cholesterol HDL Cholesterol Heart Disease Risk Ratio 02/12/17 02/11/17 02/11/17 03:20 20:56 19:00 WBC RBC Hgb Hct MCV MCH MCHC RDW Plt Count MPV Neut % (Auto) Lymph % (Auto) Riley % (Auto) Eos % (Auto) Baso % (Auto) Neut # (Auto) Lymph # (Auto) Riley # (Auto) Eos # (Auto) Baso # (Auto) Immature Gran % Nucleated RBC % Immature Gran # Nucleated RBCs # Sodium Potassium Chloride Carbon Dioxide Anion Gap BUN Creatinine GFR Calculation BUN/Creatinine Ratio Glucose POC Glucose 111 H Calculated Osmolality Calcium Magnesium Total Bilirubin AST ALT Alkaline Phosphatase Total Creatine Kinase 161 144 CK-MB (CK-2) 3.3 2.3 Troponin I 0.062 H D 0.016 Total Protein Albumin Globulin Albumin/Globulin Ratio Triglycerides 65 Cholesterol 208 H LDL Cholesterol 148.0 VLDL Cholesterol 13.0 HDL Cholesterol 55 Heart Disease Risk Ratio 3.78 02/11/17 02/11/17 02/11/17 15:12 14:55 14:55 WBC RBC Hgb Hct MCV MCH MCHC RDW Plt Count MPV Neut % (Auto) Lymph % (Auto) Riley % (Auto) Eos % (Auto) Baso % (Auto) Neut # (Auto) Lymph # (Auto) Riley # (Auto) Eos # (Auto) Baso # (Auto) Immature Gran % Nucleated RBC % Immature Gran # Nucleated RBCs # Sodium 140 Potassium 3.4 L Chloride 103 Carbon Dioxide 25 Anion Gap 15.4 H BUN 11 Creatinine 1.20 GFR Calculation 90 BUN/Creatinine Ratio 9.00 Glucose 105 POC Glucose 103 Calculated Osmolality 277.4 Calcium 8.8 Magnesium Total Bilirubin 0.70 AST 16 ALT 23 Alkaline Phosphatase 71 Total Creatine Kinase 144 CK-MB (CK-2) 1.2 Troponin I < 0.015 Total Protein 8.1 Albumin 4.1 Globulin 4.0 H Albumin/Globulin Ratio 1.0 L Triglycerides Cholesterol LDL Cholesterol VLDL Cholesterol HDL Cholesterol Heart Disease Risk Ratio 02/11/17 02/11/17 14:55 14:55 WBC 9.8 RBC 5.48 Hgb 14.3 Hct 43.6 MCV 79.6 L MCH 26 L MCHC 32.8 RDW 13.6 Plt Count 306 MPV 10.5 Neut % (Auto) 82.1 H Lymph % (Auto) 10.6 L Riley % (Auto) 6.5 Eos % (Auto) 0.1 Baso % (Auto) 0.4 Neut # (Auto) 8.0 H Lymph # (Auto) 1.0 L Riley # (Auto) 0.6 Eos # (Auto) 0.0 Baso # (Auto) 0.0 Immature Gran % 0.3 Nucleated RBC % 0.0 Immature Gran # 0.03 Nucleated RBCs # 0.00 Sodium Potassium Chloride Carbon Dioxide Anion Gap BUN Creatinine GFR Calculation BUN/Creatinine Ratio Glucose POC Glucose Calculated Osmolality Calcium Magnesium Total Bilirubin AST ALT Alkaline Phosphatase Total Creatine Kinase 138 CK-MB (CK-2) 1.4 Troponin I < 0.015 Total Protein Albumin Globulin Albumin/Globulin Ratio Triglycerides Cholesterol LDL Cholesterol VLDL Cholesterol HDL Cholesterol Heart Disease Risk Ratio - Imaging and Cardiology Cardiology Procedure: report reviewed by me Procedure: Chest x-ray: report reviewed by me, CT - chest: report reviewed by me DS: Provider Date of admission: 02/11/17 12:24 Attending physician on admission: Guero Cho Consults: 02/11/17 12:25 Consult to Cardiac Rehabilitation [CONS] Routine Reason for Cardiac Rehabilitation: Risk Factor Modification Discharging clinician: Ceci Chauhan NP Expected date of discharge: 02/12/17
[2017-02-12] MEDS ORDERED: hydrALAZINE 20 MG/1 ML VIAL IV ONE (13:38)
[2017-02-12] MEDS ORDERED: hydrALAZINE 20 MG/1 ML VIAL IV PRN (13:58)
--- NOTE | 2017-02-12 14:25 | CT Report ---
CT angio aorta complete Indication: Aortic dissection. CT ANGIOGRAM CHEST, ABDOMEN AND PELVIS DLP: 372 mGy*cm. One or more of the following dose reduction techniques was used: Automated exposure control, adjustment of the mA and/or kV according the patient size, or use of iterative reconstruction techniques. Technique: Axial CT images of the chest, abdomen and pelvis were obtained during the arterial and venous phases of contrast injection. 3-D vascular MIPS reconstructions and multiplanar reformats were evaluated. Omnipaque 350, 100 cc. Comparison: None Arteriogram: Thoracic aorta is normal in caliber along its entire length without saccular or fusiform dilatation. No dissection or periaortic hematoma. Great vessels show normal origins without focal abnormality identified. Celiac, SMA, bilateral renal and JEANETTE arteries are widely patent. The abdominal aorta is free of atheromatous disease, aneurysm, stenosis or dissection. Both common iliac, internal iliac and external iliac arteries are widely patent. Common femoral arteries and proximal SFA are unremarkable as well. Chest: Normal heart size. Physiologic amount of fluid is present in the superior pericardial recess. No pericardial effusion. No mediastinal, axillary or hilar lymphadenopathy. Pleural spaces are clear. There is some dependent atelectasis of both lungs which appear otherwise clear. Abdomen: There is diffusely hypodense. There is contrast in the gallbladder lumen. No liver lesion. Spleen, pancreas, adrenal glands and both kidneys are within normal limits. No bowel obstruction. Pelvis: Appendix is normal. Urinary bladder is contracted. Prostate is unremarkable. Rectosigmoid colon is within normal limits. No free fluid, free air or lymphadenopathy. No destructive bone lesions. Impression: 1. Negative CT angiogram of the aorta. 2. Mild dependent atelectasis of the lungs. 3. Diffuse hypodensity of the liver, likely hepatic steatosis. PROCEDURE INTERPRETED AT [facility], [place] DEPARTMENT OF RADIOLOGY Final Report Signed by: Sukhwinder Jackson M.D.
--- NOTE | 2017-02-12 14:54 | Event Note ---
Patient's blood pressures are still running too high. We will make more adjustments on his medications. He will need to be with us at least until tomorrow.
[2017-02-12] MEDS ORDERED: cloNIDine 0.1 MG TABLET PO PRN (14:55)
[2017-02-12] MEDS: amLODIPine 10 MG TABLET PO SCH (16:05)
[2017-02-12] MEDS: CARVEDILOL 12.5 MG TABLET PO SCH (20:46)
[2017-02-12] MEDS ORDERED: ATORVASTATIN 40 MG TABLET PO SCH (21:00)
--- NOTE | 2017-02-13 07:42 | Cardiology Progress Note ---
Assessment and Plan (1) Chest pain Status: Resolved Assessment and plan: No further chest pain or symptoms. Think this was noncardiac pain. Current Visit: Yes (2) Nausea and vomiting Status: Resolved Assessment and plan: This study was had no further symptoms. Current Visit: Yes (3) Coronary artery disease Status: Chronic Assessment and plan: He does have some small vessel coronary disease. Based on his outside records from 4 years ago he has coronary artery anatomy is the same and unchanged. Current Visit: Yes (4) Hypertension Status: Chronic Assessment and plan: This is better we will continue his therapy as an outpatient will follow with his primary care physician in [facility]. Current Visit: Yes (5) Diabetes mellitus Status: Chronic Assessment and plan: The details of this is unknown at this time. We will have to investigate this further. Current Visit: Yes Cardiology - PN: Subj Interval history: Patient doing well feels good this morning. He has no complaints. He has had no chest pain since admission no nausea vomiting. His blood pressures are much better. They are not normal but I do not think it getting his blood pressures are normal be appropriate since this would create possible hypoperfusion of his kidneys and lead to transient renal dysfunction. I did discuss with him the importance of taking his medications and follow with his primary care physician. He will be able to be discharged today. Exam (Progress Note) - Constitutional Vitals: Period Temp Pulse Resp BP Sys/Armas Pulse Ox Last 24 Hr 97.4 F-98 F 60-99 18-20 140-199/86-121 95-100 Exam: General appearance: normal weight, no acute distress. He is up and ambulate without difficulty. HEENT exam: normal inspection, atraumatic Neck exam: normal inspection no JVD. No carotid bruit. Trachea is in midline Respiratory/lungs exam: clear to auscultation bilaterally good air movement. Cardiovascular exam: regular rate and rhythm, no murmur or gallop or rub. No precordial lift. Chest wall exam: nontender GI/Abdominal exam: normal bowel sounds, soft, nontender, no abdominal bruits or pulsatile masses. Extremeties/musculoskeletal: normal inspection without edema or cyanosis. Right groin remains stable without any abnormalities. Neurological exam: alert, oriented X3, no focal deficits Psychiatric exam: normal affect, normal mood. Cognitive function is grossly normal. Skin exam: normal color, warm Result/EKG - Labs CBC & BMP: 02/12/17 08:26 02/12/17 08:26 Lab Results: I have reviewed the past 24 hour labs Labs: Laboratory Results - last 24 hr 02/12/17 02/12/17 02/12/17 07:18 08:26 08:26 WBC 9.2 RBC 5.57 H Hgb 14.6 Hct 43.7 MCV 78.5 L MCH 26 L MCHC 33.4 RDW 13.8 Plt Count 312 MPV 9.9 Neut % (Auto) 69.9 Lymph % (Auto) 21.5 Davison % (Auto) 7.7 Eos % (Auto) 0.4 Baso % (Auto) 0.3 Neut # (Auto) 6.4 Lymph # (Auto) 2.0 Davison # (Auto) 0.7 Eos # (Auto) 0.0 Baso # (Auto) 0.0 Immature Gran % 0.2 Nucleated RBC % 0.0 Immature Gran # 0.02 Nucleated RBCs # 0.00 Sodium 143 Potassium 3.6 Chloride 107 Carbon Dioxide 29 Anion Gap 10.6 BUN 11 Creatinine 1.20 GFR Calculation 90 BUN/Creatinine Ratio 9.00 Glucose 106 POC Glucose 95 Calculated Osmolality 283.0 Calcium 8.8 Magnesium 2.3 02/12/17 02/12/17 02/12/17 11:55 15:05 19:53 WBC RBC Hgb Hct MCV MCH MCHC RDW Plt Count MPV Neut % (Auto) Lymph % (Auto) Davison % (Auto) Eos % (Auto) Baso % (Auto) Neut # (Auto) Lymph # (Auto) Davison # (Auto) Eos # (Auto) Baso # (Auto) Immature Gran % Nucleated RBC % Immature Gran # Nucleated RBCs # Sodium Potassium Chloride Carbon Dioxide Anion Gap BUN Creatinine GFR Calculation BUN/Creatinine Ratio Glucose POC Glucose 89 116 H 102 Calculated Osmolality Calcium Magnesium 02/13/17 07:16 WBC RBC Hgb Hct MCV MCH MCHC RDW Plt Count MPV Neut % (Auto) Lymph % (Auto) Davison % (Auto) Eos % (Auto) Baso % (Auto) Neut # (Auto) Lymph # (Auto) Davison # (Auto) Eos # (Auto) Baso # (Auto) Immature Gran % Nucleated RBC % Immature Gran # Nucleated RBCs # Sodium Potassium Chloride Carbon Dioxide Anion Gap BUN Creatinine GFR Calculation BUN/Creatinine Ratio Glucose POC Glucose 90 Calculated Osmolality Calcium Magnesium - Impressions Impressions: Telemetry was sinus rhythm with normal heart rate at this time. Quality Measures - VTE Contraindication to Pharmacological VTE Prophylaxis: High Risk of Bleeding Specialty Discharge - Follow Up or Referrals
[2017-02-13] MEDS: INSULIN REGULAR 100 UNIT/ML SUBCUT SCH ×2 (09:55→12:02)
[2017-02-13] MEDS: amLODIPine 10 MG TABLET PO SCH (09:57)
[2017-02-13] MEDS: CARVEDILOL 12.5 MG TABLET PO SCH (09:57)
[2017-02-13] MEDS: LOSARTAN/HCTZ 50-12.5 MG TABLET PO SCH (09:57)
[2017-02-13] MEDS: ASPIRIN EC 81 MG TABLET PO SCH (09:57)
[2017-02-13] MEDS: PANTOPRAZOLE 40 MG TABLET PO SCH (09:58)
[2017-02-13 11:47] VITALS: BP 126/73
== END 2017-02-13 13:16 | disposition home or self-care (01) ==
LOC: N.TELES 12:17 → N.CL 12:17 → N.TELES 13:42
PROVIDERS: ADMIT Internal Medicine Cardiovascular Disease; ATTEND Internal Medicine Cardiovascular Disease
PROC: CLCCHCL (ICD-10-PCS; 2017-02-11 12:30)